=== PATIENT | female | born 1970 | race Caucasian/White ===

== ENCOUNTER 2020-02-27 15:15 | Emergency (ER) | payer OTHER ==
[~2020-02-27] VITALS: Ht 162.6 cm; Wt 90.3 kg
[~2020-02-27 15:15] MED LIST: Augmentin 875-1 EACH PO; BIRTH CONTROL; DIPH50 PO; FAMO20 PO; Norco 5-325 Ta1 EACH PO; ONDA4ODT MM; PRED20 PO; PSEU120ER PO; Prednisone10 MG PO; RXPROM25 PO
[2020-02-28] MEDS ORDERED: Percocet 5-3251 EACH PO (12:28)
== END 2020-02-27 17:42 | disposition home or self-care (01) ==
LOC: ER 15:15
DX: M25.511 Pain in right shoulder (principal); G89.29 Other chronic pain; Z88.8 Allergy status to other drugs, medicaments and biological substances; Z88.5 Allergy status to narcotic agent; Z79.899 Other long term (current) drug therapy
CPT/HCPCS: 96372; 99283-25; J1170; J1885

== ENCOUNTER 2020-02-28 10:51 | Emergency (ER) | payer OTHER ==
[~2020-02-28] VITALS: Ht 162.6 cm; Wt 90.3 kg
[2020-02-28] MEDS ORDERED: Percocet 5-3251 EACH PO (12:28)
== END 2020-02-28 12:50 | disposition home or self-care (01) ==
LOC: ER 10:51
DX: M25.511 Pain in right shoulder (principal); Z88.5 Allergy status to narcotic agent; Z88.8 Allergy status to other drugs, medicaments and biological substances
CPT/HCPCS: 96372; 99282-25; J1170; J1885

== ENCOUNTER 2022-08-11 00:34 | Observation (INO) | payer OTHER ==
[~2022-08-11] VITALS: Ht 162.6 cm; Wt 82.1 kg
[2022-08-11] VITALS (28 sets, daily range): BP systolic 124–174; BP diastolic 74–106
[~2022-08-11 00:34] MED LIST changes: +ALPRAZOLAM0.5 M1 PO; +ATOR40TA PO; +CATAPRES0.1 MG PO; +ESCI10 PO; +Percocet 5-3251 EACH PO
[2022-08-11 00:57] LABS: BASOPHILS ABSOLUTE AUTO 0.04 K/mm3 (0.00-0.23); BASOPHILS PERCENT AUTO 0 % (0-2); EOSINOPHILS ABSOLUTE AUTO 0.24 K/mm3 (0.00-0.68); EOSINOPHILS PERCENT AUTO 3 % (0-6); Hematocrit 45.8 % (33.0-51.0); Hemoglobin 15.3 g/dL (11.5-16.0); IMMATURE GRAN ABSOLUTE AUTO 0.01 K/mm3 (0.00-0.10); IMMATURE GRAN PERCENT AUTO 0 % (0-1); LYMPHOCYTES ABSOLUTE AUTO 4.44 K/mm3 (0.84-5.20); LYMPHOCYTES PERCENT AUTO 49 % (21-46); MONOCYTES ABSOLUTE AUTO 0.87 K/mm3 (0.16-1.47); MONOCYTES PERCENT AUTO 10 % (4-13); Mean Corpuscular HGB 29.2 pg (26.0-34.0); Mean Corpuscular HGB Conc 33.4 g/dL (31.5-36.5); Mean Corpuscular Volume 87 fL (80-100); Mean Platelet Volume 10.9 fL (9.1-12.4); NEUTROPHILS ABSOLUTE AUTO 3.55 K/mm3 (1.96-9.15); NEUTROPHILS PERCENT AUTO 39 % (41-73); Platelet Count 284 K/mm3 (150-400); RDW Coefficient Variation 11.9 % (11.7-14.2); RDW Standard Deviation 38.1 fL (35.1-46.3); Red Blood Cell Count 5.24 M/mm3 (3.80-5.20); White Blood Cell Count 9.15 K/mm3 (4.00-11.30)
[2022-08-11 01:22] LABS: Bilirubin, Total 0.6 mg/dL (0.1-1.0); Bun/Creatinine Ratio 14.7 (12.0-20.0); Calcium, Blood 9.7 mg/dL (8.5-10.1); Creatinine, Blood 0.81 mg/dL (0.40-1.00); Globulin, Blood 4.1 g/dL (2.2-4.0); Potassium, Blood 4.4 mmol/L (3.5-5.5); Total Protein, Blood 8.1 g/dL (6.4-8.2)
--- NOTE | 2022-08-11 06:21 | NUR ---
PT ARRIVED TO UNIT, ORIENTED TO ROOM. CALL LIGHT WITHIN REACH. BED IN LOW LOCKED POSITION, X2 SIDE RAILS UP. PATIENT EXPRESSES PAIN OF 2/10, STATED SHE IS COMFORTABLE WITH CURRENT PAIN LEVEL. VSS. NO FURTHER NEEDS EXPRESSED AT THIS TIME. A/OX4, ROOM AIR, S1/S2 AUDIBLE, CAP REFILL <2, SKIN INTACT, MILD BRUISING NOTED TO BLE FROM PT DOGS. IV FLUSHES APPROPRIATELY. WILL CONTINUE TO MONITOR.
[2022-08-11 10:21] LABS: BASOPHILS ABSOLUTE AUTO 0.04 K/mm3 (0.00-0.23); BASOPHILS PERCENT AUTO 0 % (0-2); EOSINOPHILS ABSOLUTE AUTO 0.11 K/mm3 (0.00-0.68); EOSINOPHILS PERCENT AUTO 1 % (0-6); Hemoglobin 15.1 g/dL (11.5-16.0); IMMATURE GRAN ABSOLUTE AUTO 0.02 K/mm3 (0.00-0.10); IMMATURE GRAN PERCENT AUTO 0 % (0-1); LYMPHOCYTES ABSOLUTE AUTO 3.34 K/mm3 (0.84-5.20); LYMPHOCYTES PERCENT AUTO 36 % (21-46); MONOCYTES ABSOLUTE AUTO 0.52 K/mm3 (0.16-1.47); MONOCYTES PERCENT AUTO 6 % (4-13); Mean Corpuscular HGB Conc 34.3 g/dL (31.5-36.5); Mean Corpuscular Volume 87 fL (80-100); Mean Platelet Volume 10.8 fL (9.1-12.4); NEUTROPHILS ABSOLUTE AUTO 5.22 K/mm3 (1.96-9.15); NEUTROPHILS PERCENT AUTO 57 % (41-73); Platelet Count 266 K/mm3 (150-400); RDW Standard Deviation 38.2 fL (35.1-46.3); Red Blood Cell Count 5.04 M/mm3 (3.80-5.20); White Blood Cell Count 9.25 K/mm3 (4.00-11.30)
[2022-08-11 10:26] LABS: Bilirubin, Total 0.9 mg/dL (0.1-1.0); Calcium, Blood 9.6 mg/dL (8.5-10.1); Creatinine, Blood 0.75 mg/dL (0.40-1.00); Potassium, Blood 3.8 mmol/L (3.5-5.5)
--- NOTE | 2022-08-11 11:16 | NUR ---
PT TO ORAT 1112
--- NOTE | 2022-08-11 12:08 | NUR ---
INTO [facility] VIA GURNEY FROM SURG FLOOR. History, Chart, Medications and Allergies reviewed before start of procedure.Patient confirms NPO status and agrees with scheduled surgery. Surgical site prepped with 2% Chlorhexidine cloth wipe. Lungs clear T/O to Auscultation. BELONGINGS LEFT IN ROOM.
--- NOTE | 2022-08-11 15:43 | NUR ---
PT ARRIVED BACK TO UNIT FROM PACU AT APROX 1515. BP ON ARRIVAL 166/101. PT W/N/V UPON ARRIVAL AFTER ADMINISTRATION OF COMPAZINE IN PACU. MD TO ROOM, VERBAL ORDER FOR ATIVAN 1MG IVP ONCE ADMINISTERED AT APROX 1522. RECHECK AT APROX 1527 133/64. PT APPEARS TO BE RESTING COMFORTABLY AT THIS TIME. O2 SAT DID DROP TO 89% WHILE ASLEEP, PT PLACED ON 2L O2 NC AND SATS 96%. PT APPEARS TO BE RESTING COMFORTABLY AT THIS TIME.
--- NOTE | 2022-08-11 17:38 | NUR ---
SHIFT SUMMARY PT AWAKENS EASILY TO VERBAL STIMULI, TOLERTED SMALL AMT CLEAR LIQUIDS WITH NO REPORTED N/V. DENIES ABD PAIN. LAP SITES X'S C/D/I. ALL VSS SINCE ARRIVAL BACK TO UNIT AND ADMINISTRATION OF ATIVAN. IVF RUNNING AT THIS TIME UNTIL PO INTAKE INCREASES. PLAN TO DC HOME TOMORROW.
[2022-08-12 04:05] VITALS: BP 136/88
--- NOTE | 2022-08-12 06:33 | NUR ---
POD 1 S/P LAP FRANCISCO. PT VSS T/O NIGHT. STERI STRIPS CDI. PAIN MGD W/2 NORCO W/REP RELIEF. PT DID HAVE EMESIS X2, DENIED NAUSEA, REP NO FLATUS YET, MIGUEL SM AMT PO. PT IS VOIDING URINE W/O DIFFICULTY. PT WENT FOR SEVERAL LONG WALKS IN HALLS, MIGUEL WELL, IS EAGER TO D/C HOME TODAY.
--- NOTE | 2022-08-12 08:12 | NUR ---
RN HEARD LOAD MOANING/CRYING FROM PT ROOM AT 0705. RN IN ROOM, PT STATES THAT SHE IS HAVING SEVERE ABD PAIN. EDUCATED ON GAS PAIN, PT AMBULATED WITH RN STILL MOANING AND STATING ABD "HURTS SO BAD" PT GIVEN 1MG IV DILAUDID WITH NO RELIEF. SIMETHICONE REQUEST TO DR HERRON AND GIVEN WITH NO RELIEF. PT GIVEN ORDERED XANEX. AT APROX 0757 PT STILL ANXIOUS, CRYING, DIOPHORETIC. DR NAVARRETE TO ROOM, 1MG IVP ATIVAN ORDERED AND GIVEN. AT THIS TIME PT APPEARS TO BE RESTING COMFORTABLY. STATES PAIN HAS MOVED TO L SHOULDER, EDUCATED ON GAS PAIN AND THE NEED TO AMBULATE FREQUENTLY. PT VERBALIZED UNDERSTANDING.
[2022-08-12 08:13] VITALS: BP 193/91
--- NOTE | 2022-08-12 13:13 | NUR ---
PT HAVING INCREASED ANXIOUSNESS R/T "FEELING STRANGE" AND "LETHARGIC" EDUCATED AGIAN ON SIDE EFFECTS OF ALL MEDICATIONS RECIEVED THIS AM, LIKELY CAUSE FOR LETHARGY. PT REPORTS GAS PAIN STILL SEVERE, WILL ADMINISTER ANOTHER SIMETHICONE AND PT EDUCATED AND ENCOURAGED TO AMBULATE THIS WILL HELP WITH PAIN. DR NAVARRETE NOTIFIED, AT THIS TIME WILL HOLD OFF ON DC, IF PT IMPROVED THIS AFTERNOON WILL NOTIFY
[2022-08-12 14:37] VITALS: BP 170/97
--- NOTE | 2022-08-12 17:23 | NUR ---
SHIFT SUMMARY PT HAS SHOWN IMPROVEMENT THIS AFTERNOON. PT DENIES FLATUS BUT DID APPEAR TO SLEEP COMFORTABLY FOR APROX 3 HRS. PT DOES REPORT THAT GAS PAIN HAS RETURNED AT THIS TIME, GIVEN SIMETHICONE. THE NEED TO AMBULATE REINFORCED. PT UP TO SHOWER AT TIS TIME.
[2022-08-12 20:14] VITALS: BP 161/94
[2022-08-13 03:00] VITALS: BP 144/93
--- NOTE | 2022-08-13 04:29 | NUR ---
SHIFT SUMMARY PATIENT REPORTS DECREASED GAS PAIN AND WAS ABLE TO GET "SOME GOOD REST TONIGHT". LAP SITES X3 WITH STERI STRIPS AND SLIGHT DRIED SEROSANGUINEOUS DRG. MILD BRUISING TO UMBILICAL SITE. ABD TENDER AND SOFT. HYPOACTIVE BOWEL TONES. DENIES N/V. AMBULATING TO BATHROOM, VOIDING. TAKING IN ENSURE AND WARM WATER AND TOLERATING. DENIES NEED FOR ANXIETY MEDICATION AND REPORTS "FEELING MORE RELAXED".VSS, CALL LIGHT IN REACH, CALLS APPROPRIATELY. WILL REPORT TO DAY RN.
[2022-08-13 07:13] VITALS: BP 140/99
[2022-08-13] MEDS ORDERED: Acetaminophen650 M1 PO (08:36)
[2022-08-13] MEDS ORDERED: SIME80CH PO (08:37)
--- NOTE | 2022-08-13 08:52 | NUR ---
DISCHARGE NOTE: PATIENT WAS EDUCATED ON DISCHARGE INSTRUCTIONS. SHE VERBALIZED UNDERSTANDING OF INSTRUCTIONS AND HAD NO FURTHER QUESTIONS AT THIS TIME. HARD PERSCRIPTIONS WERE PLACED IN INSTRUCTION FOLDERS. PATIENTS PAIN IS MANAGED WITH ORAL PAIN MEDICATIONS. HER ABD 3 LAP SITES WITH STERI STRIPS ARE C/D/I. BOWEL TONES ARE HYPERACTIVE. PATIENT IS TOLERATING PO INTAKE AND IS VOIDING. SHE IS DRESSED AND HAS PERSONAL ITEMS IN THE ROOM GATHERED. SHE IS BEING WHEELCHAIRED OUT TO THE CAR TO BE TAKEN HOME. IV WAS TAKEN OUT AND WNL.
== END 2022-08-13 08:45 | disposition home or self-care (01) ==
LOC: ER 00:34 → SURS 00:35
PROVIDERS: Emergency Medicine; Student in an Organized Health Care Education/Training Program; Surgery; ADMIT Internal Medicine
PROC: 0FT44ZZ Resection of Gallbladder, Percutaneous Endoscopic Approach (ICD-10-PCS; principal; 2022-08-11 11:30)
DX: K80.46 Calculus of bile duct with acute and chronic cholecystitis without obstruction (principal); E78.5 Hyperlipidemia, unspecified; I10 Essential (primary) hypertension; R14.0 Abdominal distension (gaseous); F41.1 Generalized anxiety disorder; Z87.891 Personal history of nicotine dependence; Z88.8 Allergy status to other drugs, medicaments and biological substances; Z88.5 Allergy status to narcotic agent; Z79.899 Other long term (current) drug therapy
CPT/HCPCS: 36415; 80053; 83690; 84484; 85025; 88304; 93005; 93010; 94760; 96374; 96375; 96376; 99285-25; A9270; G0378; J0780; J1100; J1170; J2060; J2250; J2543; J2704; J2765; J3010; J7030; J7120

== ENCOUNTER 2023-07-31 15:31 | Emergency (ER) | payer OTHER ==
[~2023-07-31] VITALS: Ht 162.6 cm; Wt 84.4 kg
[~2023-07-31 15:31] MED LIST changes: +Acetaminophen650 M1 PO; +SIME80CH PO
[2023-07-31] MEDS ORDERED: Prochlorperazine Edisylate 10 mg Vial IV ONE (15:50)
[2023-07-31] MEDS ORDERED: Droperidol 5 mg/2 ml Vial IV ONE (16:15)
[2023-07-31] MEDS ORDERED: Famotidine 10 MG/ML 2ML Vial IV ONE (16:15)
[2023-07-31 16:19] LABS: BASOPHILS ABSOLUTE AUTO 0.08 K/mm3 (0.00-0.23); BASOPHILS PERCENT AUTO 0 % (0-2); EOSINOPHILS ABSOLUTE AUTO 0.21 K/mm3 (0.00-0.68); EOSINOPHILS PERCENT AUTO 1 % (0-6); Hematocrit 49.8 % (33.0-51.0); Hemoglobin 16.8 g/dL (11.5-16.0); IMMATURE GRAN PERCENT AUTO 0 % (0-1); LYMPHOCYTES ABSOLUTE AUTO 2.72 K/mm3 (0.84-5.20); LYMPHOCYTES PERCENT AUTO 12 % (21-46); MONOCYTES ABSOLUTE AUTO 1.11 K/mm3 (0.16-1.47); MONOCYTES PERCENT AUTO 5 % (4-13); Mean Corpuscular HGB 29.8 pg (26.0-34.0); Mean Corpuscular HGB Conc 33.7 g/dL (31.5-36.5); Mean Corpuscular Volume 88 fL (80-100); Mean Platelet Volume 10.5 fL (9.1-12.4); NEUTROPHILS ABSOLUTE AUTO 19.48 K/mm3 (1.96-9.15); NEUTROPHILS PERCENT AUTO 82 % (41-73); Platelet Count 295 K/mm3 (150-400); RDW Coefficient Variation 12.9 % (11.7-14.2); RDW Standard Deviation 41.3 fL (35.1-46.3); Red Blood Cell Count 5.64 M/mm3 (3.80-5.20)
[2023-07-31 16:34] LABS: Albumin, Blood 4.7 g/dL (3.4-5.0); Bilirubin, Total 0.8 mg/dL (0.1-1.0); Bun/Creatinine Ratio 16.1 (12.0-20.0); Calcium, Blood 9.6 mg/dL (8.5-10.1); Creatinine, Blood 0.93 mg/dL (0.40-1.00); Globulin, Blood 4.8 g/dL (2.2-4.0); Potassium, Blood 3.4 mmol/L (3.5-5.5); Total Protein, Blood 9.5 g/dL (6.4-8.2)
[2023-07-31] MEDS ORDERED: Lactated Ringer's 1,000 ML IV ONE (17:45)
[2023-07-31 18:09] LABS: Source, Urine Clean Catch
[2023-07-31 18:14] LABS: Appearance, Urine Clear (Clear); Bilirubin, Urine Neg (Neg); Blood, Urine 1+ (Neg); Color, Urine Yellow (P-Yellow); Glucose Qualitative, Urine Neg (Neg); Ketones, Urine 1+ (Neg); Leukocyte Esterase, Urine 1+ (Neg); Nitrite, Urine Neg (Neg); Protein, Urine 3+ (Neg); Urobilinogen, Urine NORM (Normal)
[2023-07-31 18:23] LABS: Bacteria Few /hpf; Mucus Light (0-Heavy)
[2023-07-31 18:24] LABS: Squamous Epithelial Cells Many /hpf (Few)
[2023-07-31 20:25] VITALS: BP 149/106
== END 2023-07-31 20:25 | disposition home or self-care (01) ==
LOC: ER 15:31
PROVIDERS: Emergency Medicine
DX: K52.9 Noninfective gastroenteritis and colitis, unspecified (principal); F32.A Depression, unspecified; Z88.8 Allergy status to other drugs, medicaments and biological substances; Z88.5 Allergy status to narcotic agent; Z79.899 Other long term (current) drug therapy
CPT/HCPCS: 74177; 80053; 81001; 85025; J1790; J7120; Q9967